=== PATIENT | female | born 1985 | race Two or more races ===

== ENCOUNTER 2024-04-30 14:48 | Inpatient (IN) | payer OTHER ==
[~2024-04-30] VITALS: Ht 165.1 cm; Wt 66.7 kg
[2024-04-30] MEDS ORDERED: MAGNESIUM HYDROXIDE/AL HYDROX 30 ML CUP PO PRN (20:45)
[2024-04-30] MEDS ORDERED: OXYTOCIN/DEXTROSE 5% 20 UNITS/100 ML BAG IV SCH (20:45)
[2024-04-30] MEDS ORDERED: CALCIUM CARBONATE 500 MG CHEW PO PRN (20:45)
[2024-04-30 20:49] LABS: HEMATOCRIT 39.1 % (35.0-50.0); HEMOGLOBIN 13.3 g/dL (12.0-18.0); MCH 29.9 (27-36); MCHC 34.1 g/dl (30-36); MCV 87.8 fl (81-99); RBC 4.46 M/ul (4.3-5.7); RDW 13.1 (10.5-15.0)
[2024-04-30 21:04] LABS: AMPHETAMINES, URINE NEGATIVE (NEGATIVE); BARBITURATES, URINE NEGATIVE (NEGATIVE); BENZODIAZEPINE, URINE NEGATIVE (NEGATIVE); BUPRENORPHINE, URINE NEGATIVE (NEGATIVE); CANNABINOID, URINE NEGATIVE (NEGATIVE); COCAINE, URINE NEGATIVE (NEGATIVE); ECSTASY, URINE NEGATIVE (NEGATIVE); FENTANYL, URINE NEGATIVE (NEGATIVE); METHADONE, URINE NEGATIVE (NEGATIVE); OPIATES, URINE NEGATIVE (NEGATIVE); OXYCODONE, URINE NEGATIVE (NEGATIVE); PHENCYCLIDINE, URINE NEGATIVE (NEGATIVE)
[2024-04-30 21:08] VITALS: BP 131/89
[2024-04-30 21:18] LABS: ABO O; ANTIBODY SCREEN NEGATIVE; RH POSITIVE
--- NOTE | 2024-04-30 22:41 | PR ---
[facility] [address] [place] [address] Signed Progress Notes IP Datetime Report Generated by CPN: 04/30/2024 22:41 PROGRESS NOTES: [id number] Impression: Reassuring Heart Rate Procedures: Artificial ROM; Sterile Vag Exam Plan: Continue Present Management Other Plans: position changes VITAL SIGNS: [id number] Vital Signs: Reviewed; Within Normal Limits EXAM: [id number] Dilatation: 6.0 Effacement: 90 Station: 1 Contractions: q 3 to 4 min MEMBRANES: [id number] Comments: Minimal progress. Will AROM and work on position changes. FETUS A: [id number] FHR Baseline: 140 Variability: Moderate 6-25bpm Accelerations: 15X15 Decelerations: None FHR Category: Category II Presentation: Vertex Comments on Fetus A: Reassuring status FETUS B: [id number] Signing Physician: Bárbara Norton MD Copies: ~ *Electronically Signed* 04/30/24 2241 BÁRBARA NORTON MD PATIENT NAME: YESICA PACK PROGRESS NOTE DATE OF : 89 PHYSICIAN: BÁRBARA NORTON MD RPT #: [id number] REPORT IS CONFIDENTIAL AND NOT TO BE RELEASED WITHOUT AUTHORIZATION
[2024-04-30] MEDS ORDERED: ACETAMINOPHEN 500 MG TAB PO ONE (23:00)
--- NOTE | 2024-05-01 01:12 | PR ---
[facility] [address] [place] [place] [address] Signed Progress Notes IP Datetime Report Generated by CANDIDA: 05/01/2024 01:12 PROGRESS NOTES: [id number] Impression: Normal Progression of Labor; Reassuring Heart Rate Procedures: Sterile Vag Exam Plan: Continue Present Management Other Plans: position changes VITAL SIGNS: [id number] Vital Signs: Reviewed; Within Normal Limits EXAM: [id number] Dilatation: 8.0 Effacement: 90 Station: -1 Contractions: q 2 min MEMBRANES: [id number] Comments: Progressing but still cervix primarily on her left. Will continue w/ position changes. FETUS A: [id number] FHR Baseline: 140 Variability: Minimal - >Undetectable to <=5bpm Accelerations: 15X15 Decelerations: Variable FHR Category: Category II Presentation: Vertex Comments on Fetus A: Reassuring status FETUS B: [id number] Signing Physician: Bárbara Norton MD Copies: ~ *Electronically Signed* 05/01/24 0112 BÁRBARA NORTON MD PATIENT NAME: YESICA PACK PROGRESS NOTE DATE OF : 89 PHYSICIAN: BÁRBARA NORTON MD RPT #: [id number] REPORT IS CONFIDENTIAL AND NOT TO BE RELEASED WITHOUT AUTHORIZATION
[2024-05-01] MEDS ORDERED: ACETAMINOPHEN 325 MG TAB PO PRN (03:30)
[2024-05-01] MEDS ORDERED: WITCH HAZEL/GLYCERIN 1 EA PAD TOP PRN (03:30)
[2024-05-01] MEDS ORDERED: MAGNESIUM HYDROXIDE 30 ML UDC PO PRN (03:30)
[2024-05-01] MEDS ORDERED: HYDROCORTISONE ACETATE 25 MG SUPP PR PRN (03:30)
[2024-05-01] MEDS ORDERED: OXYTOCIN/0.9 % SODIUM CHLORIDE 500 ML IV SCH (03:30)
[2024-05-01] MEDS ORDERED: MAGNESIUM HYDROXIDE/AL HYDROX 30 ML CUP PO PRN (03:30)
[2024-05-01] MEDS ORDERED: LIDOCAINE 2% VISCOUS 6 ML SYR TOP ONE ×2 (03:30)
[2024-05-01] MEDS ORDERED: BENZOCAINE 60 ML AEROSOL TOP PRN (03:30)
[2024-05-01] MEDS ORDERED: CALCIUM CARBONATE 500 MG CHEW PO PRN (03:30)
[2024-05-01] MEDS ORDERED: IBUPROFEN 600 MG TAB PO PRN (03:30)
[2024-05-01] MEDS ORDERED: HYDROCODONE/ACETA 5/325 TAB PO PRN (03:30)
[2024-05-01] MEDS ORDERED: TRANEXAMIC ACID IN NACL,ISO-OS 0 ML IV ONE (03:35)
[2024-05-01] MEDS ORDERED: METHYLERGONOVINE MALEATE 0.2 MG/ML AMP IM ONE (03:45)
[2024-05-01] MEDS ORDERED: SENNOSIDES/DOCUSATE 1 EA TAB PO SCH (09:00)
[2024-05-02 05:23] LABS: HEMATOCRIT 31.6 % (35.0-50.0); HEMOGLOBIN 10.8 g/dL (12.0-18.0); MCH 30.1 (27-36); MCHC 34.4 g/dl (30-36); MCV 87.6 fl (81-99); RBC 3.6 M/ul (4.3-5.7); RDW 12.8 (10.5-15.0)
== END 2024-05-02 18:17 | disposition home or self-care (01) | DRG 807 ==
LOC: FBCO 14:48 → FBC 20:04
PROVIDERS: ADMIT Obstetrics & Gynecology; ATTEND Obstetrics & Gynecology
PROC: 10907ZC Drainage of Amniotic Fluid, Therapeutic from Products of Conception, Via Natural or Artificial Opening (ICD-10-PCS; 2024-04-30)
PROC: 4A1HXCZ Monitoring of Products of Conception, Cardiac Rate, External Approach (ICD-10-PCS; 2024-04-30)
PROC: 10E0XZZ Delivery of Products of Conception, External Approach (ICD-10-PCS; principal; 2024-05-01)
PROC: 0KQM0ZZ Repair Perineum Muscle, Open Approach (ICD-10-PCS; 2024-05-01)
DX: O99.334 Smoking (tobacco) complicating childbirth (principal); Z37.0 Single live birth; F17.200 Nicotine dependence, unspecified, uncomplicated; Z3A.37 37 weeks gestation of pregnancy; O70.1 Second degree perineal laceration during delivery
CPT/HCPCS: 36415; 59025; 80307; 85027; 86850; 86900; 86901; A9270; G0463; J2210; J2590